=== PATIENT | female | born 1970 | race Hispanic/Latino ===

== ENCOUNTER 2017-09-25 12:04 | Outpatient (CLI) | payer MEDICARE ==
--- NOTE | 2017-09-25 12:57 | XRay Report ---
XRAY LEFT KNEE 4 THREE VIEWS: 09/25/17 CLINICAL: Left knee pain. FINDINGS: Mild osteopenia. No fracture or dislocation. Osteoarthritis with loss of the medial and lateral joint spaces. Small osteophytes. Patellofemoral joint osteoarthritis with small osteophytes.No joint effusion.Normal soft tissues. IMPRESSION: Moderately severe osteoarthritis with loss of both medial and lateral joint spaces.
== END 2017-09-25 12:05 | disposition home or self-care (01) ==
LOC: SPVIMAG 12:04
PROVIDERS: ATTEND Orthopaedic Surgery
DX: M17.12 Unilateral primary osteoarthritis, left knee (principal); M85.862 Other specified disorders of bone density and structure, left lower leg